=== PATIENT | female | born 1935 | race Caucasian/White ===

== ENCOUNTER 2017-07-01 06:45 | Day surgery (SDC) | payer OTHER ==
--- NOTE | 2017-07-01 07:01 | EDPHY ---
H & P Stated Complaint: pill stuck in throat Time Seen by Provider: 07/01/17 07:00 HPI/ROS: CHIEF COMPLAINT: Esophageal foreign body HISTORY OF PRESENT ILLNESS: The patient is a pleasant 81-year-old female with history of hypertension who presents to the ED with an esophageal foreign body. She took her regular dose of valsartan earlier today. She noticed that immediately be coming stuck in her upper esophagus. The patient is unable to swallow any of her secretions. She has tried small sips without success. The patient has no prior history of esophageal stricture. She has no history of gastroesophageal reflux disease. The patient denies any recent illness or complaints of acute pain. REVIEW OF SYSTEMS: A comprehensive 10 point review of systems is otherwise negative aside from elements mentioned in the history of present illness. Source: Patient Exam Limitations: No limitations - Personal History Current Tetanus/Diphtheria Vaccine: Unsure - Medical/Surgical History Hx Asthma: No Hx Chronic Respiratory Disease: No Hx Diabetes: No Hx Cardiac Disease: Yes Hx Renal Disease: No Hx Cirrhosis: No Hx Alcoholism: No Hx HIV/AIDS: No Hx Splenectomy or Spleen Trauma: No Other PMH: PMHx: HTN, cardiac murmur - Social History Smoking Status: Never smoked - Physical Exam Exam: General Appearance: Alert, mild discomfort secondary to esophageal impaction Eyes: Pupils equal and round no pallor or injection ENT, Mouth: Xerostomia, no obvious foreign body noted Respiratory: There are no retractions, lungs are clear to auscultation Cardiovascular: Regular rate and rhythm Gastrointestinal: Abdomen is soft and nontender, no masses, bowel sounds normal Neurological: Gross normal motor exam Skin: Warm and dry, no rashes Musculoskeletal: Neck is supple nontender Extremities: symmetrical, full range of motion Constitutional: Initial Vital Signs Heart Rate 118 H 07/01/17 06:46 Respiratory Rate 16 07/01/17 06:46 Blood Pressure 192/94 H 07/01/17 06:46 O2 Sat (%) 96 07/01/17 06:46 O2 Delivery Mode Room Air Allergies/Adverse Reactions: acetaminophen [From Excedrin Migraine] Allergy (Verified 05/26/15 22:00) aspirin [From Excedrin Migraine] Allergy (Verified 05/26/15 22:00) caffeine [From Excedrin Migraine] Allergy (Verified 05/26/15 22:00) Xhljswl-Rcn-Bjk Reductase Inhibitor Allergy (Verified 05/26/15 22:00) Home Medications: Medication Instructions Recorded Aspirin [Aspirin 81mg (OTC)] 81 mg PO DAILY 05/26/15 Cephalexin [Keflex] 500 mg PO TID 3 Days cap 05/26/15 Ubidecarenone [Coq-10] 30 mg PO 05/26/15 Valsartan/Hydrochlorothiazide 1 each PO 05/26/15 [Valsartan-Hctz 320-12.5 mg Tab] Medical Decision Making ED Course/Re-evaluation: The patient had an IV established. She received a L of normal saline. I attempted to give her small sips of a carbonated beverage without success in alleviating her pill impaction. Consultation was made with Dr. Josi browning from Gastroenterology at 7:15am. Informs me he will make arrangements to take the patient to endoscopy. The patient was taken to endoscopy at 9:30 a.m. for definitive treatment of her esophageal foreign body. Differential Diagnosis: Differential diagnosis considered includes esophageal foreign body, tracheal foreign body, esophagitis - Data Points Medications Given: Discontinued Medications Sodium Chloride (Ns) 1,000 mls @ 0 mls/hr IV EDNOW ONE; Wide Open PRN Reason: Protocol Stop: 07/01/17 07:26 Last Admin: 07/01/17 07:47 Dose: 1,000 mls Departure - Departure Disposition: To OP Cath/Surgery Clinical Impression: Esophageal foreign body Condition: Good
[2017-07-01] MEDS ORDERED: NS 1,000 ML IV ONE (07:25)
[2017-07-01] MEDS ORDERED: LR 1,000 ML IV ONE (09:39)
--- NOTE | 2017-07-01 11:13 | GCON ---
[f rep st] CONSULTATION OUTPATIENT CONSULTATION NOTE REFERRING PHYSICIAN: Reji Murray MD REASON FOR CONSULTATION: Dysphagia and foreign body impaction. HISTORY OF PRESENT ILLNESS: Briefly, the patient is a pleasant 81-year-old female, who took her medi cations this morning and has had difficulty swallowing since. She believes that her valsartan tablet , which is large, and has a fairly sticky coding has become stuck in her esophagus. Since early this morning, she has been unable to tolerate any liquids or saliva. She reports 1 prior episode of a si milar situation, but her pill passed spontaneously. Of note, she has no prior history of heartburn, indigestion, nausea, vomiting. She reports that generally she is able to eat, chew, transfer, and sw allow during meal times without difficulty. She reports no fever, chills or sweats. She has had no cough or shortness of breath. She is fairly uncomfortable with this foreign body in her esophagus. She is having to spit up her own saliva. ALLERGIES: Multiple and are documented in the chart, they include Tylenol, aspirin, caffeine, statin s. MEDICATIONS: Outpatient medicines are aspirin, Keflex, coenzyme Q10, and valsartan. PAST MEDICAL HISTORY: Includes hypertension. FAMILY HISTORY: She reports is negative for peptic disease, hypertension, and heart disease. SOCIAL HISTORY: She drinks alcohol 2 or 3 times per week, does not smoke, does not use drugs. REVIEW OF SYSTEMS: A complete 10-system review was undertaken with the patient and pertinent positiv es and negatives are detailed in the history of present illness. PHYSICAL EXAMINATION: GENERAL: This is a well-developed female, in mild distress. HEENT: Her pupi ls are equal, round, reactive to light and accommodation. Sclerae are nonicteric. Oropharynx is jair ar. NECK: Supple without lymphadenopathy. HEART: Regular without murmur. ABDOMEN: Soft, nontend er, with normoactive bowel sounds. EXTREMITIES: Free of cyanosis, clubbing, and edema. NEURO: Nena ssly nonfocal. SKIN: Warm and dry. Her joints show no arthritis. PSYCH: Reveals normal mood and affect. There is no laboratory testing for review. IMPRESSION AND RECOMMENDATIONS: The patient has had the impaction of a large pill in the esophagus t his morning. She has been unable to tolerate liquids since that time. Given that this has not passe d spontaneously, we will need to plan upper endoscopy to remove the impacted foreign body. Pending t he results of endoscopy, we may need to plan a subsequent endoscopy in order to determine the etiolog y of her swallowing difficulty. /[id number]/MODL
[2017-07-01] MEDS ORDERED: PROPOFOL 200 MG/20 ML VIAL ONE ×2 (11:19)
[2017-07-01] MEDS ORDERED: fentaNYL 100 MCG/2 ML INJ ONE (11:19)
[2017-07-01] MEDS ORDERED: ONDANSETRON 4 MG/2 ML VIAL ONE (11:32)
[2017-07-01] MEDS ORDERED: SUCCINYLCHOLINE CHLORIDE*ANESTHESIA ONLY*200 MG/10 ML SYR IVP ONE (11:32)
[2017-07-01] MEDS ORDERED: ROCURONIUM 50 MG/5 ML VIAL ONE (11:32)
[2017-07-01] MEDS ORDERED: LIDOCAINE 2% 5 ML SDV ONE (11:32)
[2017-07-01] MEDS ORDERED: ALBUTEROL 3 ML DEYVIAL IH PRN (11:35)
[2017-07-01] MEDS ORDERED: LR 500 ML IV PRN (11:35)
[2017-07-01] MEDS ORDERED: fentaNYL 100 MCG/2 ML INJ IVP PRN (11:35)
[2017-07-01] MEDS ORDERED: ONDANSETRON 4 MG/2 ML VIAL IVP PRN (11:35)
[2017-07-01] MEDS ORDERED: NALOXONE HCL 0.4 MG/ML INJ IVP PRN (11:35)
[2017-07-01] MEDS ORDERED: DEXAMETHASONE 4 MG/ML VIAL IVP PRN (11:35)
--- NOTE | 2017-07-01 11:35 | PDANEPAE ---
ANE Past Medical History - Cardiovascular History Hx Hypertension: Yes Hx Arrhythmias: No Hx Chest Pain: No Hx Coronary Artery / Peripheral Vascular Disease: No Hx CHF / Valvular Disease: No Hx Palpitations: No Cardiovascular History Comment: ASYMPTOMATIC MURMUR - Pulmonary History Hx COPD: No Hx Asthma/Reactive Airway Disease: No Hx Recent Upper Respiratory Infection: No Hx Oxygen in Use at Home: No Hx Sleep Apnea: No Sleep Apnea Screening Result - Last Documented: Negative - Neurologic History Hx Cerebrovascular Accident: No Hx Seizures: No Hx Dementia: No - Endocrine History Hx Diabetes: No - Renal History Hx Renal Disorders: No - Liver History Hx Hepatic Disorders: No - Neurological & Psychiatric Hx Hx Neurological and Psychiatric Disorders: No - Cancer History Hx Cancer: Yes Cancer History Comment: SKIN ON NOSE - Congenital Disorder History Hx Congenital Disorders: No - GI History Hx Gastrointestinal Disorders: Yes 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 - Other Health History Other Health History: SCCA NOSE - Chronic Pain History Chronic Pain: No - Surgical History Prior Surgeries: NONE ANE Review of Systems Review of Systems: - Exercise capacity METS (RN): 4 METS ANE Patient History - Allergies Allergies/Adverse Reactions: acetaminophen [From Excedrin Migraine] Allergy (Verified 05/26/15 22:00) aspirin [From Excedrin Migraine] Allergy (Verified 05/26/15 22:00) caffeine [From Excedrin Migraine] Allergy (Verified 05/26/15 22:00) Boqpgwa-Wgs-Ehi Reductase Inhibitor Allergy (Verified 05/26/15 22:00) - Home Medications Home Medications: Aspirin [Aspirin 81mg (OTC)] 81 mg PO DAILY 05/26/15 [Last Taken 06/30/17] Ubidecarenone [Coq-10] 30 mg PO 05/26/15 [Last Taken 06/30/17] Valsartan/Hydrochlorothiazide [Valsartan-Hctz 320-12.5 mg Tab] 1 each PO [Last Taken 07/01/17] - NPO status NPO Since - Liquids (Date): 07/01/17 NPO Since - Liquids (Time): 05:45 NPO Since - Solids (Date): 07/01/17 NPO Since - Solids (Time): 05:45 - Smoking Hx Smoking Status: Never smoked ANE Labs/Vital Signs - Vital Signs Blood Pressure: 173/87 Heart Rate: 103 Respiratory Rate: 22 O2 Sat (%): 92 Height: 167.64 cm Weight: 68.946 kg ANE Physical Exam - Airway Neck exam: decreased ROM Mallampati Score: Class 3 Mouth exam: normal dental/mouth exam - Pulmonary Pulmonary: no respiratory distress, no rales or rhonchi, clear to auscultation - Cardiovascular Cardiovascular: regular rate and rhythym, no murmur, rub, or gallop - ASA Status ASA Status: III, E ANE Anesthesia Plan Anesthesia Plan: general endotracheal anesthesia (rapid sequence induction)
--- NOTE | 2017-07-01 11:52 | POSTANESTH ---
Post Anesthetic Evaluation Cardiovascular Status: Normal, Stable Respiratory Status: Normal, Stable Level of Consciousness/Mental Status: Can Participate in Eval Pain Control: Adequate, Prn Tx Ordered Nausea/Vomiting Control: Adequate, Prn Tx Ordered Complications Possibly Related to Anesthesia: None Noted
[2017-07-01 11:58] VITALS: TEMP 97.7
--- NOTE | 2017-07-01 12:23 | GPN ---
[f rep st] PROCEDURE NOTE Corrected report OUTPATIENT PROCEDURE NOTE PROCEDURE: Upper endoscopy. INDICATION: Foreign body in the esophagus. MEDICATIONS USED: Per Anesthesia. COMPLICATIONS: None acutely. DESCRIPTION OF PROCEDURE: After informed consent was obtained, the patient was left in the supine position and endotracheal tube anesthesia was administered successfully by our anesthesia colleagues. The forward-viewing upper endoscope was then advanced through the mouth into the proximal duodenum. Retroflex views in the gastric cardia were obtained. FINDINGS: 1. There was a food/pill impaction in the proximal 3rd of the esophagus. With gentle pressure, this was advanced through the esophagus into the gastric lumen. There appears to be a narrowing in the proximal 3rd of the esophagus. There was some stretch/tear of this narrowing with the physical manipulation to remove the impacted food/pill. 2. There was minimal gastritis noted, although the exam of the stomach was somewhat limited by retained food contents. The duodenum appeared normal, but again was limited by the presence of food in the duodenal lumen. Retroflex views in the gastric cardia appeared normal. IMPRESSION AND RECOMMENDATIONS: Successful disimpaction of food from a proximal esophageal stricture. I recommend the patient be discharged home. Use daily proton-pump inhibitor, and undergo a followup upper endoscopy in 4 to 6 weeks. At that time, we can biopsy the esophagus, consider dilation, etc. Meanwhile, the patient should take her foods upright after chewing carefully. She may need to change her pill forms to more easily swallowed versions. /[id number]/MODL Chey worktype, 07/05/17, mary ellen HDZ
[2017-07-01 12:49] VITALS: O2SAT 92
[2017-07-01 12:57] VITALS: BP 151/78; PULSE 94; RESP 13
== END 2017-07-01 13:30 | disposition home or self-care (01) ==
LOC: FSGY 08:50
PROVIDERS: ATTEND Internal Medicine Gastroenterology
PROC: 0DC58ZZ Extirpation of Matter from Esophagus, Via Natural or Artificial Opening Endoscopic (ICD-10-PCS; principal; 2017-07-01 11:30)
DX: T18.198A Other foreign object in esophagus causing other injury, initial encounter (principal)
CPT/HCPCS: J0330; J2405; J2704; J3010